=== PATIENT | male | born 1960 | race Caucasian/White ===

== ENCOUNTER 2024-02-16 18:18 | Inpatient (IN) | payer OTHER, MEDICARE, SELFPAY ==
[2024-02-16] VITALS (8 sets, daily range): BP systolic 111–175; BP diastolic 49–141; BMI 23.3; BMI 22.6
--- NOTE | 2024-02-16 16:04 | ED.GENMED ---
History of Present Illness
General
Chief Complaint: Change Level of Consciousness
Time Seen by Provider: 02/16/24 15:48
History of Present Illness
History of Present Illness:
63-year-old male with past medical history of chronic back pain presents to the emergency room via EMS after witnessed collapse by bystanders. Patient arrives to us very confused and unable to provide much meaningful history. According to EMS
bystanders called after witnessing him walk out of [facility] and collapsed near his car. EMS found him acutely confused and tachycardic. 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
Yesterday she says that he was feeling nauseated and dizzy and told her that 'I think that heat is getting to me.' This morning still was feeling mildly nauseous, left the house at 7 AM and he appeared well otherwise. She says that he was
supposed to go to [facility] today to get supplies for an upcoming vacation. Patient is oriented x 2, attempts to answer question but trails off after a few words and is not getting any meaningful responses. He seems to deny any pain. He seems to
deny any respiratory issues.
Review of Systems
Review of Systems
Unable to obtain full review of systems at this time due to: due to acuity
All Other Systems: Not applicable
Phy Exam
Physical Exam
Physical Exam:
Vitals: Normotensive, tachycardia, tachypnea, hypoxia, hyperthermic (greater than 104 �F rectally)
General: Laying in bed eyes open but confused, oriented x 2
Head: Normocephalic, atraumatic
Eyes: Conjunctiva normal, pupils equal round and reactive to light bilaterally
Throat: Airway intact, mucous membranes somewhat dry
Neck: Trachea midline, supple without meningismus
Lungs: Hypoxic to 87% requiring 2 L nasal cannula, mild tachypnea, clear to auscultation bilaterally, no wheezing, rales, rhonchi
Heart: Tachycardia with regular rhythm, no murmurs, gallops, or rubs
Abd: Soft, non distended, no apparent tenderness
Neuro: Cranial nerves grossly intact, eyes open and tracks with his eyes and attempt to answer questions but trails off after a few words; he does not have dysarthria; he is moving all extremities does not appear to have any gross motor or sensory
deficits
Skin: no rash or signs of trauma
Extremities: No edema in extremities, equal pulses in all extremities
Scores
NIH Stroke Score
Level of Consciousness: 1 - Arousable
LOC Questions: 1-Answers one correctly
LOC Commands: 0-Performs both correctly
Best Horizontal Gaze: 0-Normal
Visual Mendoza: 0=Normal, no visual loss
Facial Palsy: 0=Normal, symmetrical
Motor - Right Arm: 0=No drift 10 seconds
Motor - Left Arm: 0=No drift 10 seconds
Motor - Right Le-No drift 5 seconds
Motor - Left Le-No drift 5 seconds
Limb Ataxia: 0-Absent
Sensation: 0-Normal
Best Language: 1-Mild aphasia
Dysarthria: 0-Normal
Extinction and Inattention: 0-No abnormality
Total Score:: 3
Heart Failure Risk
Heart Failure Risk Score: Not Applicable
Heart Score for Chest Pain Patients
STEMI patient?: Not applicable
Withdrawal Assessment of Alcohol
Withdrawal Assessment Completed?: Not applicable
Course
Orders/Labs/Results
Orders:
Orders
02/16/24 Dinner
Regular
At Your Request: Full Participation
Does patient need a safe tray?: No
02/16/24 15:55
CT Head W/o Cont STROKE ALERT Urgent
Reason For Exam: acute change in mentation
02/16/24 15:56
Bedside Glucose- Treatment ONCE
02/16/24 15:57
Urinalysis Reflex To Culture Urgent
CR Chest Portable - 1 View Urgent
Comment:
Reason For Exam: fever
Reason Study Needs to be Portable: Unable to Transport
02/16/24 15:58
Electrocardiogram (*1) Urgent
Reason for Study: TIA/Stroke
EKG- Treatment ONCE
Drug Screen, Urine [Urine Drug Abuse Screen] Urgent
Acetaminophen [Tylenol/Feverall] 650 mg RECTAL NOW STA
02/16/24 15:59
Alcohol Urgent
Complete Blood Count/With Diff Urgent
Comprehensive Metabolic Panel Urgent
Creatine Phosphokinase Urgent
Comment: ADD ON
TSH Reflex To Free T4 Urgent
02/16/24 16:00
CT Head/Neck Ang STROKE ALERT Urgent
Reason For Exam: acute change in mentation
02/16/24 16:01
0.9% Sodium Chloride 1000 ml [Nss] 1,000 ml IV BOLUS
02/16/24 16:20
COVID-19 Antigen Urgent
Source: Nasal Swab
Troponin I Urgent
Blood Culture Urgent
VIN Source: Blood/Venous
Specimen Description:
02/16/24 16:25
Add On- LAB Urgent
Tests Added?: CPK
02/16/24 16:27
Blood Culture Routine
VIN Source: Blood/Venous
Specimen Description:
02/16/24 16:29
Azithromycin 500 mg/250 ml [Zithromax Infusion] 500 mg in 250 ml IV NOW
CefTRIAXone [Rocephin] 1,000 mg IV NOW STA
02/16/24 16:38
Aspirin 300 mg RECTAL NOW STA
Clopidogrel Bisulfate [Plavix] 75 mg PO NOW STA
02/16/24 17:27
Admit/Transfer Patient As Directed
Co-Sign Provider:
Level of Care: Inpatient admission
Assign to:: Medical/Surgical
Physician / Group: [email or web address]
Diagnosis: sepsis pnuemonia
Reason for Hospitalization: sepsis pnuemonia
Expected length of stay greater than two midnights?: Yes
ELOS- Estimated Length of Stay in days: 2
I certify the patient meets the requirements for IP care: Yes
02/16/24 17:28
Code Status As Directed
Resuscitation Status: Full Code
02/16/24 17:30
Legionella Urinary Antigen Urgent
VIN Source: Urine
Specimen Description:
Respiratory Culture/Gram Stain Urgent
VIN Source: Sputum
Specimen Description:
Strep pneumoniae Antigen Urgent
VIN Source: Urine
Specimen Description:
02/16/24 18:47
0.9% Sodium Chloride 1000 ml [Nss] 1,000 ml IV 120 mls/hr
Ondansetron Injectable [Zofran] 4 mg IV Q6HPRN PRN
Tizanidine [Zanaflex] 4 mg PO TIDPRN PRN
02/16/24 18:47
Activity As Directed
Activity Level: As Tolerated
Vital Signs As Directed
Frequency: Per unit guidelines
DX Deep Vein Thrombosis Video Routine
02/16/24 18:55
Oxycodone [Roxicodone] 20 mg PO Q4HPRN PRN
02/16/24 19:01
Ibuprofen [Motrin] 600 mg PO Q6HPRN PRN
02/16/24 20:00
Heparin 5,000 units SC Q12
02/16/24 22:00
Acetaminophen [Tylenol] 650 mg PO Q4HPRN PRN
02/17/24 06:00
Complete Blood Count/With Diff IN AM
Comprehensive Metabolic Panel IN AM
02/17/24 08:00
Nicotine [Nicoderm Transdermal] 7 mg TRANSDERM DAILY
02/17/24 16:00
Azithromycin 500 mg/250 ml [Zithromax Infusion] 500 mg in 250 ml IV Q24H
CefTRIAXone [Rocephin] 1,000 mg IV Q24H
Abnormal Lab Results
02/16/24 02/16/24
15:59 16:17
WBC 11.2 H 10^3/uL
(4.8-10.8)
RBC 3.99 L 10^6/uL
(4.70-6.10)
Hgb 12.3 L g/dL
(13.0-18.0)
Hct 35.4 L %
(39.0-52.0)
Absolute Neuts (auto) 9.8 H 10^3/uL
(1.4-6.5)
Absolute Lymphs (auto) 0.7 L 10^3/uL
(1.2-3.4)
Neutrophils % 87.9 H %
(42.2-75.2)
Lymphocytes % 6.3 L %
(20.5-51.1)
Sodium 134 L mmol/L
(135-145)
Glucose 145 H mg/dl
(70-99)
Creatine Kinase 752 H U/L
(55-170)
Total Protein 6.2 L g/dl
(6.3-8.2)
POC Glucose 143 H mg/dl
(70-99)
02/16/24 15:59
02/16/24 15:59
Vital Signs
Initial and Last Documented VS:
Initial Vital Signs
Temp Pulse Resp BP Pulse Ox
40.0 C H 136 16 175/49 87
02/16/24 15:51 02/16/24 15:51 02/16/24 15:51 02/16/24 15:51 02/16/24 15:51
Last Documented Vital Signs
Temp Pulse Resp BP Pulse Ox
37.6 C 94 18 111/49 96
02/16/24 18:55 02/16/24 18:55 02/16/24 18:55 02/16/24 18:55 02/16/24 18:55
MDM/Problems Addressed
Differential Diagnosis Includes:
Heatstroke/environmental hyperthermia, infection such as UTI or pneumonia, ischemic/hemorrhagic stroke, PE, drug intoxication/overdose
MDM/Problems Addressed:
63-year-old male presents for evaluation after witnessed collapse in [facility] parking lot; presents acutely confused. He arrives hypothermic, tachycardic, tachypneic and hypoxic. Exam as above. Suspect that this may be case of environmental
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 Nevertheless must consider acute stroke with hyperthermia status post collapse, must also consider infection. Stroke alert was activated with onset of collapse
within an hour of arrival. Will send labs including a CBC and a CMP; check EKG and troponin. Check CT head and after discussion with neurology also recommends CTA head and neck. Will provide IV fluids, rectal Tylenol and will perform external
cooling measures as well. Reassess after the above.
CT head pelvic radiology: Negative for acute pathology. CTA pending. On reassessment with: Patient seems to have improved mental status. He admits that he has been feeling unwell for the past few days also reports he has been coughing and feeling
mildly nauseated. I suspect that mental status changes from high temperature rather than an acute CVA and so we will hold off on TNK�discussed with neurology and they agree.
Chest x-ray reviewed by me appears to show right midlung infiltrate consistent with pneumonia which explains his hypoxia and high fever although environment could be contributing to high fever as well unlikely heatstroke as on his lab work his LFTs
are normal. His CBC did show slight leukocytosis consistent with an acute infectious process. Will cover with antibiotics for community-acquired pneumonia. Blood cultures were sent off. Fluid resuscitation in progress. Will plan for admission
for sepsis secondary to pneumonia and acute encephalopathy secondary to infection.
*Radiology
Radiology exam reviewed: radiology read reviewed
*Pulse Oximetry
Patient hypoxic: yes
*EKG
Interpreted by ED Provider?: Yes
Heart Rate: 120
Rate: tachycardiac
Rhythm: sinus and sinus tachycardia
[place]: normal axis
Interval: normal interval
QRS Pattern: left vent hypertrophy
Ischemia: non-specific ST changes
*Critical Care Note
Total Time (30-74mins, 75-104mins- exclusive of procedures): Not Applicable
Data Reviewed
Source: patient, family and ambulance crew
Patient Management
Discussion with other providers: Hospitalist (Discussed with hospitalist) and Manager [employer] (Discussed with neurology)
Escalation/DeEscalation of care consider admission/obs:
Admission indicated
ED Attending Note
-
Portions of this chart may have been created with voice recognition software.� Occasional wrong word or��sound alike� substitutions may have occurred due to the inherent limitations of voice recognition software.
Discharge Plan
Departure
Patient Disposition: Admit
Date of Disposition: 02/16/24
Time of Disposition: 16:37
Admit to doctor: Andino
Presentation/result/management discussed w/ accepting MD/DO: Hospitalist
Discharge Problem:
Pneumonia, Sepsis, Encephalopathy
Interventions
Interventions:
*Risk Screen - Suicide Last Done: 02/16/24 15:51
*General Assessment Last Done: 02/16/24 15:51
*Neglect/Abuse Screening Last Done: 02/16/24 15:51
ED- Fall Risk Assessment Last Done: 02/16/24 15:56
*ED COVID-19 Vaccine History Last Done: 02/16/24 21:06
*Nursing Disposition Last Done: 02/16/24 18:36
ED- Cardiac Assessment Last Done: 02/16/24 15:56
ED- Neurological Assessment Last Done: 02/16/24 16:51
ED-Psychological Assessment Last Done: 02/16/24 15:56
ED- Pulmonary Assessment Last Done: 02/16/24 15:56
Discharge Date and Time
Discharge Date/Time: 02/16/24 18:37
[2024-02-16 16:09] LABS: Hematocrit 35.4 % (39.0-52.0); Hemoglobin 12.3 g/dL (13.0-18.0); Mean Corp Hgb Conc. 34.7 g/dL (33.0-37.0); Mean Corpuscular Hgb 30.8 pg (27.0-31.0); Mean Corpuscular Volume 88.7 fL (80.0-94.0); Mean Platelet Volume 9.5 fL (7.4-10.4); Platelet Count 262 10^3/uL (130-400); Red Blood Cell Count 3.99 10^6/uL (4.70-6.10); Red Cell Dist. Width 13.8 % (11.5-14.5); White Blood Cell Count 11.2 10^3/uL (4.8-10.8)
[2024-02-16 16:18] LABS: Glucose - Point of Care 143 mg/dl (70-99)
[2024-02-16 16:27] LABS: ALT (SGPT) 16 U/L (0-50); AST (SGOT) 30 U/L (17-59); Albumin 3.9 g/dl (3.5-5.0); Alkaline Phosphatase 120 U/L (38-126); Blood Urea Nitrogen 15 mg/dl (9-20); Calcium 9.5 mg/dl (8.4-10.2); Carbon Dioxide 25 mmol/L (22-30); Estimated Creatinine Clearance 79 ml/min; Glucose 145 mg/dl (70-99); Total Protein 6.2 g/dl (6.3-8.2); eGFR > 60.00
[2024-02-16] MEDS: TYLENOL/FEVERALL 650 MG RECTAL (16:28)
[2024-02-16] MEDS: NSS 1000 IV ×2 (16:28→19:45)
[2024-02-16 16:29] LABS: Alcohol None Detected
[2024-02-16 16:33] LABS: % Basophils 0.5 % (0-2); % Eosinophils 0.2 % (0-6); % Immature Granulocytes 0.3 % (0-0.5); % Lymphocytes 6.3 % (20.5-51.1); % Monocytes 4.8 % (1.7-9.3); % Neutrophils 87.9 % (42.2-75.2); Absolute Basophils 0.1 10^3/uL (0-0.2); Absolute Lymphocytes 0.7 10^3/uL (1.2-3.4); Absolute Monocytes 0.5 10^3/uL (0.1-0.6); Absolute Neutrophils 9.8 10^3/uL (1.4-6.5); Nucleated Red Blood Cells % 0 % (-)
[2024-02-16 16:35] LABS: Chloride 104 mmol/L (98-107); Potassium 4.1 mmol/L (3.5-5.1); Sodium 134 mmol/L (135-145)
[2024-02-16 16:50] LABS: TSH Reflex To Free T4 0.94 uIU/ml (0.47-4.68)
[2024-02-16] MEDS: PLAVIX 75 MG PO (16:53)
[2024-02-16] MEDS: ROCEPHIN 1000 MG IV (16:53)
[2024-02-16] MEDS: ZITHROMAX INFUSION 250 IV (16:53)
[2024-02-16] MEDS: ASPIRIN 300 MG RECTAL (16:53)
[2024-02-16 16:55] LABS: COVID-19 Antigen Negative (Negative)
[2024-02-16 16:57] LABS: Troponin I < 0.012 ng/ml
[2024-02-16 17:08] LABS: Creatine Phosphokinase 752 U/L (55-170)
--- NOTE | 2024-02-16 17:31 | HPS.HSE ---
Family Physician
-
Family Physician: Mark Basilio
Chief Complaint
-
collapse
History of Present Illness
63-year-old male past medical history of chronic back pain presenting via EMS after witnessed collapse by bystanders. Patient arrives confused and unable to provide much history. According to EMS bystanders called after [facility] out of
[facility] and collapsed near his car. EMS found him acutely confused and tachycardic. 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 Yesterday she states that he was feeling nauseated and dizzy and stated that ' I
think that the heat is getting to me'. This morning he was feeling mildly nauseous but was otherwise appearing well. No vomiting. Patient is oriented x 2 and at times answers questions but trails off after few words.
Patient does have some productive cough but denies any shortness of breath or chest pain. He did not have any vomiting. No abdominal pain. He did have diarrhea yesterday and today.
Stroke alert was initially called and patient received aspirin/Plavix. CTA of head and neck was unremarkable.
Patient smokes half a pack of cigarettes per day. He denies alcohol or any drugs.
Medical History
Past Medical History
Past Medical History: Reports Other (chronic back pain )
Past Surgical History: Reports Orthopedic
Social History
Tobacco: Smoker
Alcohol: None
Drug: None
Family History
Family History: Not pertinent
Allergies / Home Medications
Allergies reflects when Allergies were last updated in [facility].
Home Medications with original date entered in [facility]
Allergy/Medication List:
Allergies
Allergy/AdvReac Type Severity Reaction Status Date / Time
acetaminophen Allergy Unknown Verified 02/16/24 16:32
codeine Allergy Unknown Verified 02/16/24 16:32
NOT.[id number] - Not Allergy Unknown Uncoded 02/16/24 16:32
Converted 38. See Text.
NOT.[id number] - Not Allergy Unknown Uncoded 02/16/24 16:32
Converted 65. See Text.
Home Medications
ibuprofen 200 mg tablet 600 mg PO Q6HPRN PRN mild pain 02/16/24
oxycodone 20 mg tablet 20 mg PO Q4HPRN PRN severe pain 02/16/24
tizanidine 4 mg tablet 4 mg PO TIDPRN PRN muscle spasm 02/16/24
Review of Systems
-
History Source: Patient
A 12 point ROS was completed and negative except as noted: Yes
Constitutional: Reports No Symptoms
EENT: Reports No Symptoms
Respiratory: Reports See HPI
Cardiac: Reports No Symptoms
Abdomen/GI: Reports See HPI
: Reports No Symptoms
Musculoskeletal: Reports No Symptoms
Skin: Reports No Symptoms
Neurological: Reports No Symptoms
Endocrine: Reports No Symptoms
Hematologic/Lymphatic: Reports No Symptoms
Psych: Reports No Symptoms
Physical Exam
Vital Signs
Vital Signs
Temp Pulse Resp BP Pulse Ox
104.0 F H 101 24 141/79 95
02/16/24 15:51 02/16/24 17:15 02/16/24 17:15 02/16/24 17:01 02/16/24 17:15
Physical Exam
General: Well Developed, Well Nourished and No Apparent Distress
HEENT: NormoCephalic, Moist mucous membranes and Atraumatic
Respiratory: Clear
Cardiac: S1/S2 and Regular Rhythm; No Murmur or Rub
GI: Soft, Non Tender, Non Distended and Normal Bowel Sounds; No Organomegaly
Rectal: Deferred by Provider
Musculoskeletal: No Clubbing, No Cyanosis and No Edema
Skin: No Rash
Neuro: Nonfocal/grossly intact
Laboratory Results
-
02/16/24 15:59
02/16/24 15:59
Laboratory Results
Total Bilirubin 1.0 mg/dl (0.2-1.3) 02/16/24 15:59
AST 30 U/L (17-59) 02/16/24 15:59
ALT 16 U/L (0-50) 02/16/24 15:59
Alkaline Phosphatase 120 U/L (38-126) 02/16/24 15:59
Troponin I < 0.012 ng/ml 02/16/24 16:20
Data Reviewed
-
Lab Data: Labs Reviewed by me
Old Records: Reviewed
Impression/Plan
-
IMPRESSION:
PLAN:
#Sepsis (fever, tachycardia, leukocytosis)/metabolic encephalopathy secondary to community acquired pneumonia/component of hyperthermia
-Chest x-ray shows bilateral lower lung parenchymal airspace opacities, CTA of neck shows subtle patchy groundglass opacity in the right upper lobe
-COVID-negative
-Sputum culture, strep antigen, Legionella
-Blood cultures
-IV fluids
-Ceftriaxone/azithromycin
# Diarrhea since yesterday
-Check stool studies, C. difficile if persistent
# Mild rhabdomyolysis
-CPK 750
-IV fluids
Chronic back pain with spinal fusion
-Continue ibuprofen, oxycodone, tizanidine
Active smoker
-Nicotine patch
Full code
DVT prophylaxis- heparin
Regular diet
[2024-02-16] MEDS: HEPARIN 5000 UNITS SC (19:45)
--- NOTE | 2024-02-16 20:00 | PTCARENOTE ---
Patient arrived from the ED via stretcher. Ambulated into the room. AAOx3, VSS. Came up to 4E on 3L O2. Patient drowsy but arousable. NIH 2. Some complaints of dizziness. Bed alarm in place. Passed swallow screen. Patient oriented to the room, call
leon is within reach.
[2024-02-16] MEDS: TYLENOL 650 MG PO (23:24)
[2024-02-17 00:36] LABS: Urine Albumin Negative (Neg - Trace); Urine Bilirubin Negative (Negative); Urine Character Clear (Clear); Urine Color Yellow; Urine Glucose Negative (Negative); Urine Ketone 2+ (Negative); Urine Leukocyte Trace (Negative); Urine Nitrite Negative (Negative); Urine Occult Blood Negative (Negative); Urine Urobilinogen Negative (Neg - 1+)
[2024-02-17 01:12] LABS: Amphetamines Negative (Negative); Barbiturates Negative (Negative); Benzodiazepines Negative (Negative); Buprenorphine Positive (Negative); Cocaine Negative (Negative); Marijuana Negative (Negative); Methadone Negative (Negative); Methamphetamines Negative (Negative); Opiates Positive (Negative); Phencyclidine Negative (Negative); Tricyclic Antidepressants Negative (Negative)
[2024-02-17 01:22] LABS: Fentanyl, Urine Negative (Negative)
[2024-02-17 01:57] LABS: Urine Red Blood Cell 0-2 /HPF (0-2)
[2024-02-17 01:58] LABS: Urine Bacteria Few (Negative)
[2024-02-17] MEDS: NSS 1000 IV ×3 (04:13→23:03)
[2024-02-17 05:43] LABS: ALT (SGPT) 14 U/L (0-50); AST (SGOT) 24 U/L (17-59); Alkaline Phosphatase 84 U/L (38-126); Blood Urea Nitrogen 11 mg/dl (9-20); Calcium 8.5 mg/dl (8.4-10.2); Carbon Dioxide 23 mmol/L (22-30); Chloride 108 mmol/L (98-107); Estimated Creatinine Clearance 100 ml/min; Glucose 102 mg/dl (70-99); Potassium 4.7 mmol/L (3.5-5.1); Sodium 137 mmol/L (135-145); Total Bilirubin 0.7 mg/dl (0.2-1.3); Total Protein 5.2 g/dl (6.3-8.2); eGFR > 60.00
[2024-02-17 06:21] LABS: Hematocrit 31.5 % (39.0-52.0); Hemoglobin 11.1 g/dL (13.0-18.0); Mean Corp Hgb Conc. 35.2 g/dL (33.0-37.0); Mean Corpuscular Hgb 30.3 pg (27.0-31.0); Mean Corpuscular Volume 86.1 fL (80.0-94.0); Mean Platelet Volume 9.8 fL (7.4-10.4); Platelet Count 231 10^3/uL (130-400); Red Blood Cell Count 3.66 10^6/uL (4.70-6.10); Red Cell Dist. Width 14.1 % (11.5-14.5); White Blood Cell Count 14.7 10^3/uL (4.8-10.8)
[2024-02-17 07:35] VITALS: BP 153/69
--- NOTE | 2024-02-17 08:12 | CON.NEURO4 ---
Addendum entered and electronically signed by Anthony Shah MD 02/17/24 14:35:
I saw and evaluated patient I reviewed the note by Veronica Irwin agree with the findings the following comments:
63-year-old male presenting the hospital with confusion, generalized weakness and collapse had stroke alert called on admission with CTA head and neck not show any significant intracranial or cervical artery vessel occlusions. He relates having
generalized malaise and dizziness and diarrhea along with fevers for the past couple of days and has been found to have bilateral pneumonia on chest imaging.
Much improved mental status
Neurologic examination with awake and alert patient able to have full conversation with answering appropriate questions no evidence of aphasia no cranial nerve deficits or motor deficit
CTA of the head and neck with no significant intracranial occlusions aneurysm or carotid stenosis
Assessment: Presumed toxic metabolic encephalopathy/delirium secondary to pneumonia sepsis and fevers
Recommendations
-Reassured patient and his that while he may have a little bit of mild confusion that can wax and wane over the next few days his rapid improvement is reassuring
-No need for further brain imaging
-Minimize sedating medications as able
-Continue treating pneumonia and infection
Will sign off call with questions and concerns
Original Note:
Documented by User: Veronica Millard NP 02/17/24 13:16
Consultation - Neurology 4
-
CONSULTING PHYSICIAN: Kameron Shah MD
REFERRING PHYSICIAN: ER/Dr. Tena
DICTATED BY: RUSSEL Murguia
DATE/TIME OF REQUEST: 02/17/24
DATE/TIME OF CONSULTATION: 02/17/24
Reason for Consultation: Change in mental status
History of Present Illness:
This is a 63-year-old right-handed male who has presented to the hospital on 02/16/24 with report of a witnessed collapse and confusion. Patient reports that starting three days ago on 02/14/24 he has been feeling fatigued, having intermittent
fevers/chills, feeling nausea, having some diarrhea, and dizzy. 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 He reports still feeling flu-like but otherwise had no symptoms prior to
collapsing near his car. EMS arrived and report he was confused and tachycardic. CT head was obtained on arrival in the ER and is negative for any acute abnormalities. CXR demonstrates bilateral pneumonia. Patient was incontinent of stool with his
collapse but denies any tongue biting. He doesn't remember anything until he woke up in the, at which time he reports still feeling 'foggy.' Today (02/17/24), he reports feeling sick but otherwise at his baseline again. He denies any headache,
dizziness, vision changes, speech/swallow difficulty, numbness, weakness, chest pain, palpitations, and shortness of breath. He denies any history of seizure, stroke, TIA, or syncope in the past. He reports having pneumonia one year ago, at which
time chest imaging demonstrated a RLL nodule. He underwent bronchoscopy/biopsy and was told pus came out of it/it was an abscess. His notes he has had an unintentional 25-30lb weight loss in the past year. He has been taking oxycodone 20mg QID
for years for chronic low back pain.
Past Medical History: Lumbar DJD/DDD, RLL abscess, pneumonia one year ago
Surgical History: L1-S1 spinal fusion, c5/6 discectomy
Family History: Reviewed and noncontributory.
Social History: Smokes cigarettes 1/2 PPD. Denies alcohol and illicit drug use.
Allergies: Codeine, acetaminophen.
Home Medications: See below.
Review of Symptoms:
Patient denies any fever, headache, chest pain, shortness of breath, or symptoms.
�Per the HPI.�All systems are reviewed negative except above.
Physical Exam:
The patient is afebrile, abdomen is nondistended, breathing is unlabored, skin is warm and dry, no edema.
NIH Stroke Scale:
I performed the NIH stroke scale on the patient on 02/17/24 at 0920. The patient scored 0 points on the NIH stroke scale assessment, which were assigned as follows: See below.
Neurologic Examination:
The patient is awake, alert and oriented x 3. He is able to follow commands and answer questions appropriately. There is no aphasia or dysarthria. On cranial nerve assessment, pupils are 3 mm bilateral, round and reactive to light and
accommodation. Visual mendoza are full. Extraocular movements are intact. Facial sensations are intact and bilaterally symmetrical, there is no facial asymmetry. Hearing is intact bilaterally to normal conversation volume. Tongue palate and uvula are
midline. Sternocleidomastoid strengths are full bilaterally. Motor strengths are 5/5 bilateral upper and lower extremities on medical research Frederick scale. There is no drift or involuntary movement noted. Deep tendon reflexes are 2+ bilateral
upper and lower extremities and Babinski is absent bilaterally. Sensations of touch, temperature and vibration are intact and bilaterally symmetrical. There was no extinction noted on double simultaneous stimulation. Coordination is intact by finger
to nose bilaterally.
Lab Results: See below.
Neuro Imaging:
1. CT Head 02/16/24: No evidence of acute intracranial abnormality. Aspects score: 10.
2. CTA head/neck 02/16/24: No significant narrowing involving the right carotid bulb or proximal right internal carotid artery, with no significant calcification. Mild to moderate focal calcification involving the left carotid bulb and the proximal
left ICA, with less than 25% diameter reduction. Normal appearance of the anterior cerebral and middle cerebral arteries bilaterally. No significant narrowing involving the vertebral or basilar arteries. Posterior cerebral arteries appear within
normal limits. Note is made of subtle patchy groundglass opacity within the right upper lobe, suggesting patchy groundglass pneumonitis. Somewhat centered around vessels, and groundglass opacities associated with pneumonitis are a consideration.
Differentials for the patient's presentation include:
1. Syncope and delirium in the setting of bilateral pneumonia producing change in mental status/collapse.
2. Very low concern for seizure or stroke.
Patient has the following risk factors for their symptoms: Pneumonia, opioid usage
Recommendations:
-Supportive care per primary team.
-Do not see a role for further neurological imaging.
-Neurology will follow as-needed, please contact our Neurology service with any questions/concerns.
Discussed patient care with: Dr. Shah, the patient
Vital Signs and Labs
-
Vital Signs and Labs:
Vital Signs
Temp Pulse Resp BP Pulse Ox
99 F 88 12 153/69 97
02/17/24 07:35 02/17/24 07:35 02/17/24 07:35 02/17/24 07:35 02/17/24 07:35
Lab Results
02/17/24 04:43
02/17/24 04:43
Sodium 137 mmol/L (135-145) 02/17/24 04:43
Potassium 4.7 mmol/L (3.5-5.1) 02/17/24 04:43
BUN 11 mg/dl (9-20) 02/17/24 04:43
Glucose 102 mg/dl (70-99) H 02/17/24 04:43
Calcium 8.5 mg/dl (8.4-10.2) 02/17/24 04:43
Ur Buprenorphine Positive (Negative) H 02/17/24 00:26
Medications
-
Medications:
Generic Name Dose Route Start Last Admin
Trade Name Freq PRN Reason Stop Dose Admin
Acetaminophen 650 mg 02/16/24 22:00 02/16/24 23:24
Acetaminophen 325 Mg Tablet PO 03/15/24 21:59 650 mg
Q4HPRN PRN Administration
mild pain/VERONICA/temp> 100.4F
Ceftriaxone Sodium 1,000 mg 02/17/24 16:00
Ceftriaxone 1000 Mg / 10 Ml Vial IV
Q24H JAREK
Heparin Sodium 5,000 units 02/16/24 20:00 02/17/24 08:52
Heparin 5,000 Units/Ml 1 Ml Vial SC 03/15/24 19:59 5,000 units
Q12 JAREK Administration
Sodium Chloride 1,000 mls @ 120 mls/hr 02/16/24 18:47 02/17/24 04:13
Nss IV 1,000 mls
.Q8H20M JAREK Administration
Azithromycin 500 mg in 250 mls @ 250 mls/hr 02/17/24 16:00
Zithromax Infusion IV
Q24H JAREK
Ibuprofen 600 mg 02/16/24 19:01
Ibuprofen 600 Mg Tablet PO 03/15/24 19:00
Q6HPRN PRN
mild pain
Nicotine 7 mg 02/17/24 08:00 02/17/24 08:51
Nicotine 7 Mg Patch TRANSDERM 03/16/24 07:59 7 mg
DAILY JAREK Administration
Ondansetron HCl 4 mg 02/16/24 18:47
Ondansetron 4 Mg/2 Ml Vial IV 03/15/24 18:46
Q6HPRN PRN
nausea and vomiting
Oxycodone HCl 20 mg 02/16/24 18:55
Oxycodone 10 Mg Regular Release Tablet PO 03/01/24 18:54
Q4HPRN PRN
severe pain
Sodium Chloride 0 flush 02/16/24 19:00
Sodium Chloride 0.9% (Flush) Syringe IV 03/15/24 18:59
PER PROTOCOL JAREK
Sterile Water 10 ml 02/17/24 16:00
Sterile Water For Injection 10 Ml Vial IV 03/16/24 15:59
Q24H JAREK
Tizanidine HCl 4 mg 02/16/24 18:47
Tizanidine 4 Mg Tablet PO 03/15/24 18:46
TIDPRN PRN
muscle spasm
NIH Stroke Score
Subsequent NIH Scale
Date of Subsequent NIH Scale: 02/17/24
Time of Subsequent NIH Scale: 09:20
NIH Stroke Score
Level of Consciousness: 0 - Alert
LOC Questions: 0-Answers both correctly
LOC Commands: 0-Performs both correctly
Best Horizontal Gaze: 0-Normal
Visual Mendoza: 0=Normal, no visual loss
Facial Palsy: 0=Normal, symmetrical
Motor - Right Arm: 0=No drift 10 seconds
Motor - Left Arm: 0=No drift 10 seconds
Motor - Right Le-No drift 5 seconds
Motor - Left Le-No drift 5 seconds
Limb Ataxia: 0-Absent
Sensation: 0-Normal
Best Language: 0-No aphasia
Dysarthria: 0-Normal
Extinction and Inattention: 0-No abnormality
Total Score:: 0

Documented by User: Anthony Shah MD 02/17/24 14:33
NIH Stroke Score
NIH Stroke Score
Total Score:: 0
[2024-02-17 08:40] LABS: % Basophils 0.2 % (0-2); % Eosinophils 0.2 % (0-6); % Immature Granulocytes 0.4 % (0-0.5); % Lymphocytes 9.6 % (20.5-51.1); % Monocytes 6.7 % (1.7-9.3); % Neutrophils 82.9 % (42.2-75.2); Absolute Immature Granulocytes 0.1 10^3/uL (0-0.05); Absolute Lymphocytes 1.4 10^3/uL (1.2-3.4); Absolute Neutrophils 12.2 10^3/uL (1.4-6.5); Nucleated Red Blood Cells % 0 % (-)
[2024-02-17] MEDS: NICODERM TRANSDERMAL 7 MG TRANSDERM (08:51)
[2024-02-17] MEDS: HEPARIN 5000 UNITS SC ×2 (08:52→20:46)
[2024-02-17 09:13] LABS: Creatine Phosphokinase 339 U/L (55-170)
[2024-02-17 12:21] VITALS: BMI 22.6
--- NOTE | 2024-02-17 12:52 | CM ---
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
[place].he has never had a vn or been to ip rehab.
medical history:smoker,chronic back pain o, ibuprofen and oxycodone prn
patient is adm with sepsis/pna on iv zithromax and iv rocephin,ivf at 120cc/hr.ct chest done.plan is dc home with no needs anticipated.
--- NOTE | 2024-02-17 12:59 | W.PN.HOSP.TC ---
Addendum entered and electronically signed by Casey Hernandez MD 02/17/24 17:25:
strep pneumonia: strep pneumo UA +. Will DC angel. COntinue CTX for a total of 5days. Fortunatly, no evidence of resp distress nor hypoxia.
Original Note:
Today's Communication/Plan
-
.
Assessment / Plan
Assessment / Plan
NAD, resting comfortably in bed
Scleral anicteric
Moist mucous membranes
No JVD
CTA bilateral
Normal S1-S2 no murmurs
Soft nontender nondistended bowel sounds active
No peripheral pitting edema
Moves extremities spontaneously, finger clubbing
AAOx3
Sepsis secondary to pneumonia continue cap coverage follow up sputum cx, legionel and strep pneumo antigen
-History of lung abscess requiring bronchoscopy and drainage and prolonged course of antibiotics 1 year ago from [facility]
-Check ct chest
-Consider Pulm/ID depending on findings
Environmental hyperthermia resolved without specific cool measures
Mild rhabdo, downtrending CK. Will not follow any further. Discontinue IV fluids.
Active smoker continue nicotine
Anticipated Discharge: Within 24 hours
Subjective/Interval History
-
Date of Service: February 17, 2024
seen and examined
febrile overnight
feeling better though
dry cough
Objective Data
-
Labs:
Laboratory Results
02/17/24
04:43
WBC 14.7 H
Hgb 11.1 L
Hct 31.5 L
Plt Count 231
Sodium 137
Potassium 4.7
Chloride 108 H
Carbon Dioxide 23
BUN 11
Creatinine 0.7
Glucose 102 H
Calcium 8.5
Total Bilirubin 0.7
AST 24
ALT 14
Alkaline Phosphatase 84
Vital Signs:
Vital Signs
Temp Pulse Resp BP Pulse Ox
99 F 88 12 153/69 97
02/17/24 07:35 02/17/24 07:35 02/17/24 07:35 02/17/24 07:35 02/17/24 07:35
I&O
02/16/24 02/17/24 02/18/24
06:59 06:59 06:59
Intake Total 1919
Balance 1919
[2024-02-17] MEDS: ROXICODONE 20 MG PO ×2 (13:51→19:45)
[2024-02-17 15:39] VITALS: BP 127/67
[2024-02-17] MEDS: ROCEPHIN 1000 MG IV (16:22)
[2024-02-17] MEDS: STERILE WATER FOR INJECTION 10 ML IV (16:22)
[2024-02-17] MEDS: ZITHROMAX INFUSION 250 IV (16:29)
[2024-02-17 23:39] VITALS: BP 134/69
[2024-02-18] MEDS: ZANAFLEX 4 MG PO (03:34)
[2024-02-18] MEDS: ROXICODONE 20 MG PO ×2 (03:34→08:31)
[2024-02-18 07:00] VITALS: BP 152/69
[2024-02-18 08:11] LABS: % Basophils 0.4 % (0-2); % Immature Granulocytes 0.4 % (0-0.5); % Lymphocytes 16.2 % (20.5-51.1); % Monocytes 6.1 % (1.7-9.3); % Neutrophils 75.9 % (42.2-75.2); Absolute Eosinophils 0.1 10^3/uL (0-0.7); Absolute Lymphocytes 1.6 10^3/uL (1.2-3.4); Absolute Monocytes 0.6 10^3/uL (0.1-0.6); Absolute Neutrophils 7.6 10^3/uL (1.4-6.5); Hemoglobin 11.5 g/dL (13.0-18.0); Mean Corp Hgb Conc. 34.8 g/dL (33.0-37.0); Mean Corpuscular Hgb 31.3 pg (27.0-31.0); Mean Corpuscular Volume 89.9 fL (80.0-94.0); Mean Platelet Volume 10.1 fL (7.4-10.4); Nucleated Red Blood Cells % 0 % (-); Platelet Count 273 10^3/uL (130-400); Red Blood Cell Count 3.67 10^6/uL (4.70-6.10); Red Cell Dist. Width 14.1 % (11.5-14.5)
[2024-02-18] MEDS: NICODERM TRANSDERMAL 7 MG TRANSDERM (08:31)
[2024-02-18] MEDS: HEPARIN 5000 UNITS SC (08:33)
[2024-02-18 08:34] LABS: Blood Urea Nitrogen 7 mg/dl (9-20); Calcium 8.7 mg/dl (8.4-10.2); Carbon Dioxide 26 mmol/L (22-30); Chloride 111 mmol/L (98-107); Estimated Creatinine Clearance 100 ml/min; Glucose 114 mg/dl (70-99); Potassium 4.1 mmol/L (3.5-5.1); Sodium 140 mmol/L (135-145); eGFR > 60.00
--- NOTE | 2024-02-18 09:32 | W.PN.HOSP.TC ---
Addendum entered and electronically signed by Casey Hernandez MD 02/20/24 12:12:
Non traumatic rhando
Multifactorial - septic and metabolic encephalopathy
Original Note:
Today's Communication/Plan
-
dc home
Assessment / Plan
Assessment / Plan
NAD, resting comfortably in bed
Scleral anicteric
Moist mucous membranes
No JVD
CTA bilateral
Normal S1-S2 no murmurs
Soft nontender nondistended bowel sounds active
No peripheral pitting edema
Moves extremities spontaneously, finger clubbing
AAOx3
Sepsis secondary to pneumonia continue cap coverage follow up sputum cx, legionel and strep pneumo antigen
-History of lung abscess requiring bronchoscopy and drainage and prolonged course of antibiotics [address] [facility]
-DC azithro
-Transition to PO vantin x7days
-Outpt pulm follow up
Environmental hyperthermia resolved without specific cool measures
Mild rhabdo, downtrending CK. Will not follow any further. Discontinue IV fluids.
Active smoker continue nicotine
DC home
Anticipated Discharge: Today
Subjective/Interval History
-
Date of Service: February 18, 2024
seen and examined
no new complaints
no acute overnight events
Objective Data
-
Labs:
Laboratory Results
02/18/24
07:19
WBC 10.0
Hgb 11.5 L
Hct 33.0 L
Plt Count 273
Sodium 140
Potassium 4.1
Chloride 111 H
Carbon Dioxide 26
BUN 7 L
Creatinine 0.7
Glucose 114 H
Calcium 8.7
Vital Signs:
Vital Signs
Temp Pulse Resp BP Pulse Ox
98.1 F 67 18 152/69 96
02/18/24 07:00 02/18/24 07:00 02/18/24 07:00 02/18/24 07:00 02/18/24 07:00
I&O
02/17/24 02/18/24 02/19/24
06:59 06:59 06:59
Intake Total 1919 4440 / 4440
Balance 1919 4440 / 4440
--- NOTE | 2024-02-18 09:36 | W.DCSUMMARY ---
Discharge Summary
Discharge Data
Date of Admission: 02/16/24
Date of Discharge: 02/18/24
-
Pending Results: No
Hospital Course
63 M hx of lung abscess presented after passing out in [facility] [place]. Found to be hyperthermic and noted concerns of community-acquired pneumonia/multifocal pneumonia on chest x-ray. Strep pneumo antigen positive. Started on IV antibiotics.
Transition to oral antibiotics with Vantin 200 mg twice a day for additional 6day.
Additionally, reported history within the past 1 year of lung abscess that was drained bronchoscopy at outside hospital. Chest CT completed see report as below.
Stop smoking cigarettes
Complete antibiotic course
Outpatient PCP and pulmonary follow-up
CT CHest
IMPRESSION:
Interval resolution of right middle lobe abscess. Persistent pneumonia in the right middle lobe which is relatively unchanged. There is new consolidation involving the bilateral lower lobes compatible with multifocal pneumonia.
Enhancing 4.3 cm mass in the left hepatic lobe, unchanged from prior, and presumably representing a hemangioma but suboptimally characterized.
Discharge Plan
-
Patient Disposition: Home (Routine Discharge)
Discharge Diagnosis/Procedures: CAP
Syncope
hyperthermic
Lung Abscess Hx
Diet: As tolerated
Activity: As tolerated
Activity Restrictions/Additional Instructions:
[facility]. Found to be hyperthermic and noted concerns of community-acquired pneumonia/multifocal pneumonia on chest x-ray. Strep pneumo antigen positive. Started on IV antibiotics. Transition to oral
antibiotics with Vantin 200 mg twice a day for additional 6day.
Additionally, reported history within the past 1 year of lung abscess that was drained bronchoscopy at outside hospital. Chest CT completed see report as below.
Stop smoking cigarettes
Complete antibiotic course
Outpatient PCP and pulmonary follow-up
CT Chest
IMPRESSION:
Interval resolution of right middle lobe abscess. Persistent pneumonia in the right middle lobe which is relatively unchanged. There is new consolidation involving the bilateral lower lobes compatible with multifocal pneumonia.
Enhancing 4.3 cm mass in the left hepatic lobe, unchanged from prior, and presumably representing a hemangioma but suboptimally characterized.
Instructions: Community-Acquired Pneumonia, Adult (DC)
Referrals:
Mark Basilio DO [Family Provider] -
Prescriptions:
New
nicotine 7 mg/24 hr Patch 24 Hour
7 mg transdermal DAILY Qty: 14 0RF
cefpodoxime 200 mg tablet
200 mg PO BID 6 Days Qty: 12 0RF
albuterol sulfate [Ventolin HFA] 90 mcg/actuation HFA aerosol inhaler
2 puff inhalation Q6H PRN (Reason: shortness of breath or wheezing) Qty: 8.5 0RF
Continued
tizanidine 4 mg tablet
4 mg PO TIDPRN PRN (Reason: muscle spasm)
oxycodone 20 mg tablet
20 mg PO Q4HPRN PRN (Reason: severe pain)
ibuprofen 200 mg Tablet
600 mg PO Q6HPRN PRN (Reason: mild pain)
Patient Comments:
02/16/2024: Spouse states goes through approximately 100 tabs per month.
Discharge Orders:
Discharge Patient (As Directed); Ordered 02/18/24
Ordered By: Casey Hernandez
Discharge Date and Time
Print Language: BELARUSIAN
--- NOTE | 2024-02-18 12:51 | PN.CDI ---
CDI
- -
CDI:
Physician Documentation Request
Admit Date: 02/16/24 18:18
Dear Doctor David,
Patient admitted for sepsis and pneumonia.
EMS was called when bystander witnessed patient collapse.
UDS positive for Opiates, buprenorphine, and oxycodone.
Progress notes include a diagnosis of mild rhabdomyolysis
Could you please clarify the type of rhabdomyolysis:
Traumatic
Non traumatic
Other
Use of terms such as suspected, likely, concern for, or probable (associated with a specific diagnosis that is being evaluated, monitored, or treated as if it exists) are acceptable and can be coded in the inpatient setting, when documented at the
time of discharge.
Thank you,
Jen Mayen RN, BSN
CDI Specialist
tiger text
Please use your independent medical judgment in providing your response.
--- NOTE | 2024-02-18 12:57 | PN.CDI ---
CDI
- -
CDI:
Physician Documentation Request
Admit Date: 02/16/24 18:18
Dear Doctor David,
Patient presents to ED 'very confused and unable to provide much meaningful history.'
H&P states ' Sepsis (fever, tachycardia, leukocytosis)/metabolic encephalopathy secondary to community acquired pneumonia....'
Neurology consultation states 'assessment: Presumed toxic metabolic encephalopathy/delirium secondary to pneumonia sepsis and fevers'
In an attempt to clarify potentially conflicting documentation , please clarify diagnosis related to the patient's confusion:
Metabolic Encephalopathy
Toxic metabolic encephalopathy
Acute Delirium secondary to pneumonia, sepsis and fevers.
Multifactorial - please specify
Other
Use of terms such as suspected, likely, concern for, or probable (associated with a specific diagnosis that is being evaluated, monitored, or treated as if it exists) are acceptable and can be coded in the inpatient setting, when documented at the
time of discharge.
Thank you,
Jen Mayen RN, BSN
CDI Specialist
tiger text
Please use your independent medical judgment in providing your response.
== END 2024-02-18 12:19 | disposition home or self-care (01) | DRG 871 ==
LOC: 4 EAST ACU 18:18
PROVIDERS: ADMITTING PHYSICIAN Hospitalist; ATTENDING PHYSICIAN Hospitalist; EMERGENCY PHYSICIAN Emergency Medicine; FAMILY PHYSICIAN Internal Medicine; OTHER PHYSICIAN Student in an Organized Health Care Education/Training Program
DX: A40.3 Sepsis due to Streptococcus pneumoniae (principal); G93.41 Metabolic encephalopathy; J13 Pneumonia due to Streptococcus pneumoniae; T67.01XA Heatstroke and sunstroke, initial encounter; M62.82 Rhabdomyolysis; G89.29 Other chronic pain; M54.50 Low back pain, unspecified; R11.0 Nausea; R42 Dizziness and giddiness; F17.210 Nicotine dependence, cigarettes, uncomplicated; R19.7 Diarrhea, unspecified; X58.XXXA Exposure to other specified factors, initial encounter; Y93.K1 Activity, walking an animal; Y92.9 Unspecified place or not applicable; Z88.6 Allergy status to analgesic agent; Z88.5 Allergy status to narcotic agent; Z98.1 Arthrodesis status; Z11.52 Encounter for screening for COVID-19
CPT/HCPCS: 70450; 70496; 70498; 71045; 71260; 80048; 80053; 80306; 80307; 81003; 81015; 82077; 82550; 82962; 84443; 84484; 85025; 87040; 87449; 87811; 87899; 93005; 96361; 96374; 96375; 99285; 99406; Q9967

== ENCOUNTER 2024-12-15 06:07 | Emergency (ER) | payer OTHER, SELFPAY ==
[2024-12-15 06:10] VITALS: BP 137/67
[2024-12-15 06:42] VITALS: BP 162/78
[2024-12-15 06:45] VITALS: BMI 21.8
--- NOTE | 2024-12-15 06:51 | ED.GENMED ---
History of Present Illness
General
Chief Complaint: Flank Pain
Source: patient
Exam Limitations: none
Time Seen by Provider: 12/15/24 06:46
History of Present Illness
History of Present Illness:
64-year-old male presents with sudden onset of right flank pain last evening. There is associated nausea. He has a history of kidney stones and this feels similar. No hematuria but notes dark urine. No fever. There is vomiting. He has a
history of chronic back pain of which he takes tizanidine, gabapentin and oxycodone for. No other complaints at this time
Phy Exam
Physical Exam
Physical Exam:
General: Uncomfortable appearing male in no acute respiratory distress
HEENT: Normocephalic atraumatic
Heart: Regular rate and rhythm
Lungs: Clear no wheeze
Abdomen is soft tender slightly to the right lower and right costovertebral angle
Extremities: No cyanosis
Course
Orders/Labs/Results
Orders:
Orders
12/15/24 06:32
Urinalysis Reflex To Culture Urgent
Date Specimen was Collected: 12/15/24
Time Specimen was Collected: 06:16
Urine Microscopic Reflex Cult Urgent
Urine Culture Urgent
VIN Source: U
Specimen Description:
Date Specimen was Collected: 12/15/24
Time Specimen was Collected: 06:16
12/15/24 06:50
HYDROmorphone [Dilaudid] 0.5 mg IV NOW STA
Ketorolac [Toradol] 15 mg IV NOW STA
Ondansetron Injectable [Zofran] 4 mg IV NOW STA
12/15/24 06:51
CT Abd/pel Without Iv Or Oral Urgent
Comment:
Reason For Exam: right flank pain
12/15/24 06:53
0.9% Sodium Chloride 1000 ml [Nss] 1,000 ml IV BOLUS
12/15/24 07:36
Complete Blood Count/With Diff Urgent
Comprehensive Metabolic Panel Urgent
12/15/24 10:07
HYDROmorphone [Dilaudid] 0.5 mg IV NOW STA
12/15/24 10:21
diazePAM [Valium Injection] 5 mg IV NOW STA
Abnormal Lab Results
12/15/24 12/15/24
06:32 07:36
WBC 17.2 H 10^3/uL
(4.8-10.8)
RBC 4.20 L 10^6/uL
(4.70-6.10)
Hgb 12.5 L g/dL
(13.0-18.0)
Hct 37.2 L %
(39.0-52.0)
Abs Immat Gran (auto) 0.1 H 10^3/uL
(0-0.05)
Absolute Neuts (auto) 14.6 H 10^3/uL
(1.4-6.5)
Absolute Monos (auto) 0.9 H 10^3/uL
(0.1-0.6)
Neutrophils % 85.2 H %
(42.2-75.2)
Lymphocytes % 8.5 L %
(20.5-51.1)
Chloride 109 H mmol/L
(98-107)
Creatinine 0.6 L mg/dL
(0.7-1.3)
Glucose 154 H mg/dl
(70-99)
AST 12 L U/L
(17-59)
Alkaline Phosphatase 136 H U/L
(38-126)
Ur Occult Blood Reflex 1+ A
(Negative)
Leukocyte Esterase Rfl 2+ A
(Negative)
Urine Bacteria (Reflex) Few A
(Negative)
Urine Albumin (Reflex) 2+ A
(Neg - Trace)
12/15/24 07:36
12/15/24 07:36
Vital Signs
Initial and Last Documented VS:
Initial Vital Signs
Temp Pulse Resp BP Pulse Ox
98.3 F 59 18 137/67 100
12/15/24 06:10 12/15/24 06:10 12/15/24 06:10 12/15/24 06:10 12/15/24 06:10
Last Documented Vital Signs
Temp Pulse Resp BP Pulse Ox
97.8 F 57 16 166/55 100
12/15/24 07:29 12/15/24 11:34 12/15/24 11:34 12/15/24 11:34 12/15/24 11:34
MDM/Problems Addressed
Differential Diagnosis Includes:
Patient with right flank pain and history of kidney stones. Differential today consider renal colic versus musculoskeletal pain versus pyelonephritis
Check labs and urinalysis. Treat symptoms with Toradol Zofran and Dilaudid as well as fluids pending
*Critical Care Note
Total Time (30-74mins, 75-104mins- exclusive of procedures): Not Applicable
Update Note
Update Note:
CT negative for acute finding. Patient reevaluated multiple times still complains of right flank pain. Reexamined no rash. Other items in differential could include musculoskeletal flank pain renal infarct. Offered and recommended CT of the
abdomen pelvis with IV contrast however patient declined as he states he wants to go home. Patient understood this. Will add Valium potential muscle spasm. He has other pain medicine he takes at home.
ED Attending Note
-
Portions of this chart may have been created with voice recognition software.� Occasional wrong word or��sound alike� substitutions may have occurred due to the inherent limitations of voice recognition software.
Discharge Plan
Departure
Patient Disposition: Home (Routine Discharge)
Date of Disposition: 12/15/24
Time of Disposition: 12:12
Patient with high blood pressure during this ER visit?: No
Discharge Problem:
Acute right flank pain
Instructions: Flank Pain (DC)
Prescriptions:
New
diazepam [Valium] 5 mg tablet
5 mg PO BID PRN (Reason: muscle spasm) Qty: 10 0RF
No Action
tizanidine 4 mg tablet
4 mg PO TIDPRN PRN (Reason: muscle spasm)
oxycodone 20 mg tablet
20 mg PO Q4HPRN PRN (Reason: severe pain)
ibuprofen 200 mg Tablet
600 mg PO Q6HPRN PRN (Reason: mild pain)
Patient Comments:
02/16/2024: Spouse states goes through approximately 100 tabs per month.
nicotine 7 mg/24 hr Patch 24 Hour
7 mg transdermal DAILY Qty: 14 0RF
cefpodoxime 200 mg tablet
200 mg PO BID 6 Days Qty: 12 0RF
albuterol sulfate [Ventolin HFA] 90 mcg/actuation HFA aerosol inhaler
2 puff inhalation Q6H PRN (Reason: shortness of breath or wheezing) Qty: 8.5 0RF
Referrals:
Mark Basilio DO [Family Provider, Internal Medicine]
Activity Restrictions/Additional Instructions:
Use Lidoderm patches and warm compresses to the area. Continue with your pain medicine and use Valium if needed for spasm. Return here if worse otherwise follow-up with your doctor
Interventions
Interventions:
*Risk Screen - Suicide Last Done: 12/15/24 06:10
*General Assessment Last Done: 12/15/24 07:46
*Neglect/Abuse Screening Last Done: 12/15/24 07:46
*ED- Fall Risk Assessment Last Done: 12/15/24 07:46
*ED COVID-19 Vaccine History Last Done: 12/15/24 07:46
RN-Vciici-Jpmhzdjcwu Assessment Last Done: 12/15/24 06:45
ED-Male Genitourinary Assessment Last Done: 12/15/24 06:45
Discharge Date and Time
Print Language: UPPER SORBIAN
[2024-12-15 07:00] VITALS: BP 161/51
[2024-12-15] MEDS: NSS 1000 IV (07:36)
[2024-12-15] MEDS: ZOFRAN 4 MG IV (07:37)
[2024-12-15] MEDS: TORADOL 15 MG IV (07:37)
[2024-12-15] MEDS: DILAUDID 0.5 MG IV ×2 (07:37→10:12)
[2024-12-15 07:51] LABS: Urine Albumin 2+ (Neg - Trace); Urine Bilirubin Negative (Negative); Urine Character Clear (Clear); Urine Color Yellow; Urine Glucose Negative (Negative); Urine Ketone Negative (Negative); Urine Leukocyte 2+ (Negative); Urine Nitrite Negative (Negative); Urine Occult Blood 1+ (Negative); Urine Specific Gravity 1.025 (<1.030); Urine Urobilinogen Negative (Neg - 1+)
[2024-12-15 07:58] LABS: % Basophils 0.5 % (0-2); % Eosinophils 0.2 % (0-6); % Immature Granulocytes 0.5 % (0-0.5); % Lymphocytes 8.5 % (20.5-51.1); % Monocytes 5.1 % (1.7-9.3); % Neutrophils 85.2 % (42.2-75.2); Absolute Basophils 0.1 10^3/uL (0-0.2); Absolute Immature Granulocytes 0.1 10^3/uL (0-0.05); Absolute Lymphocytes 1.5 10^3/uL (1.2-3.4); Absolute Monocytes 0.9 10^3/uL (0.1-0.6); Absolute Neutrophils 14.6 10^3/uL (1.4-6.5); Hematocrit 37.2 % (39.0-52.0); Hemoglobin 12.5 g/dL (13.0-18.0); Mean Corp Hgb Conc. 33.6 g/dL (33.0-37.0); Mean Corpuscular Hgb 29.8 pg (27.0-31.0); Mean Corpuscular Volume 88.6 fL (80.0-94.0); Mean Platelet Volume 9.6 fL (7.4-10.4); Nucleated Red Blood Cells % 0 % (-); Platelet Count 392 10^3/uL (130-400); Red Cell Dist. Width 13.5 % (11.5-14.5); White Blood Cell Count 17.2 10^3/uL (4.8-10.8)
[2024-12-15 08:12] LABS: Urine Calcium Oxalate Crystals Seen
[2024-12-15 08:14] LABS: Urine Red Blood Cell 0-2 /HPF (0-2)
[2024-12-15 08:17] LABS: Urine Bacteria Few (Negative)
[2024-12-15 08:30] LABS: ALT (SGPT) 12 U/L (0-50); AST (SGOT) 12 U/L (17-59); Albumin 3.7 g/dl (3.5-5.0); Alkaline Phosphatase 136 U/L (38-126); Blood Urea Nitrogen 10 mg/dl (9-20); Calcium 9.6 mg/dl (8.4-10.2); Carbon Dioxide 27 mmol/L (22-30); Chloride 109 mmol/L (98-107); Estimated Creatinine Clearance 111 ml/min; Glucose 154 mg/dl (70-99); Potassium 4.6 mmol/L (3.5-5.1); Sodium 139 mmol/L (135-145); Total Bilirubin 0.5 mg/dl (0.2-1.3); Total Protein 6.6 g/dl (6.3-8.2); eGFR > 60.00
[2024-12-15] MEDS: VALIUM INJECTION 5 MG IV (10:45)
[2024-12-15 11:34] VITALS: BP 166/55
== END 2024-12-15 12:31 | disposition home or self-care (01) ==
LOC: EMR 06:07
PROVIDERS: Physician Assistant; Student in an Organized Health Care Education/Training Program; EMERGENCY PHYSICIAN Emergency Medicine; FAMILY PHYSICIAN Internal Medicine
DX: R10.9 Unspecified abdominal pain (principal)
CPT/HCPCS: 99285; 96374; 96375 ×3; 96361; 96376; 74176; 80053; 81003; 81015; 85025; 87086